=== PATIENT | male | born 1955 | race Caucasian/White ===

== ENCOUNTER 2025-09-18 15:21 | Emergency (ER) | payer MEDICARE ==
[~2025-09-18] VITALS: Ht 165.1 cm; Wt 70.0 kg
[2025-09-18 15:25] VITALS: TEMP 97.5; O2SAT 94
[2025-09-18 15:48] VITALS: BP 116/54; PULSE 68; RESP 18; O2SAT 95
[2025-09-18 16:19] LABS: BASOPHILS % 0.9 % (0.0-2.0); EOSINOPHILS % 1.5 % (0.0-5.0); HEMATOCRIT. 40.0 % (42.0-52.0); HEMOGLOBIN. 13.3 g/dL (14.0-18.0); LYMPHOCYTES % 27.0 % (20.0-50.0); MEAN PLATELET VOLUME 8.8 fl (7.4-10.4); MONOCYTES % 6.4 % (2.0-8.0); NEUTROPHILS % 64.2 % (40.0-76.0); PLATELET 226 x1000/uL (130-400); RED BLOOD CELL COUNT 4.46 mill/uL (4.7-6.1); RED CELL DISTRIBUTION WIDTH 13.9 % (11.6-14.6)
[2025-09-18] MEDS: SODIUM CHLORIDE 0.9% 1,000 ML IV ONE (16:25)
[2025-09-18 16:41] LABS: CREATININE 0.9 mg/dL (0.6-1.3); ETHANOL BLOOD 194 mg/dL (<10); UREA NITROGEN BLOOD 17 mg/dL (9-23)
== END 2025-09-18 16:51 | disposition home or self-care (01) ==
LOC: ER 15:21
DX: F10.129 Alcohol abuse with intoxication, unspecified (principal); I10 Essential (primary) hypertension; Z86.73 Personal history of transient ischemic attack (TIA), and cerebral infarction without residual deficits; Y90.9 Presence of alcohol in blood, level not specified
CPT/HCPCS: 80048; 80320; 85025; 36415; 99283; J7030; G0480